=== PATIENT | male | born 1945 | race Caucasian/White ===

== ENCOUNTER → 2017-03-20 | Outpatient (CLI) | payer MEDICARE, OTHER ==
[~2017-03-20] MED LIST: ALLOPURINOL 10100 M3 PO; ALLOPURINOL 30300 M2 PO; ANUSOL1 EACH RC; AVELOX 400 MG400 M1 PO; AZITHROMYCIN 2250 MG PO; B-100 COMPLEX1 EAC1 PO; B-12250 MCG PO; BIOTIN-D1 GM PO; BIOTIN1 MG PO; BIOTIN2500 MCG PO; CAL-CITRATE PL1 EACH PO; CARVEDILOL25 MG PO; CEFDINIR300 MG PO; CIPROFLOXACIN500 M1 PO; CLEOCIN HCL150 MG PO; COZAAR 25MG TAB25 M1; COZAAR 50 MG TA50 M1 PO; Calcium PO; DIOVAN PO; DIOVAN320 MG PO; FLOMAX PO; GAVISCON500 MG PO; HI-CAL500 MG PO; IRON PO; IRON325 PO; K-DUR 20 MEQ T20 MEQ PO; LASIX 40 MG TAB40 M1; LASIX 40 MG TAB40 M2 PO; LEVAQUIN 750 M750 MG PO; LEVOFLOXACIN PG; LEVOTHROID100 MC1 PO; LORTAB 5 MG/5001 TA1 PO; LORTAB 7.5/5001 TA3; MOBIC15 MG; MULTIVITAMINS PO; NEPHROCAPS SOFT1 CAP PO; NEURONTIN 300300 M1 PO; NEXIUM40 MG PO; NORCO 5-325 TA1 EACH PO; OMEPRAZOLE 20 M20 M1 PO; OMEPRAZOLE40 MG PO; PERCOCET 5-3251 EACH PO; POTASSIUM CHLO20 ME1; PRAVACHOL20 MG PO; PROFERRIN12 MG PO; ROBAXIN 750 MG750 M1 PO; SELENIUM100 MCG PO; SYNTHROID100 MCG PO; SYNTHROID125 MCG PO; SYNTHROID175 MCG PO; SYNTHROID50 MCG PO; TAMSULOSIN HCL0.4 M1 PO; ULTRAM 50MG TAB50 MG PO; VITAMIN A25000 UNIT PO; VITAMIN B-1100 MG PO; VITAMIN D 5050000 I1 PO; VITAMIN E400 UNIT PO; VITCB500GO PO; ZINC CHELATE50 MG PO; ZOCOR 20 MG TAB20 M1 PO; Zinc PO; [UNRECOGNIZED DRUG - OTHER] PO; [UNRECOGNIZED DRUG - OTHER] PO; [UNRECOGNIZED DRUG - OTHER] PO; [UNRECOGNIZED DRUG - OTHER] PO; [UNRECOGNIZED DRUG - OTHER] PO
== END ==
LOC: M.RAD 14:10
DX: M17.0 Bilateral primary osteoarthritis of knee (principal)

== ENCOUNTER 2017-04-10 11:15 | Emergency (ER) | payer MEDICARE, OTHER ==
[~2017-04-10] VITALS: Ht 175.3 cm; Wt 106.6 kg
[~2017-04-10 11:15] MED LIST changes: -ROBAXIN 750 MG750 M1 PO
[2017-04-10] MEDS ORDERED: NORCO 5-325 TA1 EACH PO (12:19)
[2017-04-10] MEDS ORDERED: ROBAXIN 750 MG750 M1 PO (12:19)
[2017-04-10 12:48] VITALS: BP 136/76
== END 2017-04-10 12:49 | disposition home or self-care (01) ==
LOC: M.ERS 11:15
DX: S46.811A Strain of other muscles, fascia and tendons at shoulder and upper arm level, right arm, initial encounter (principal); I11.0 Hypertensive heart disease with heart failure; I50.9 Heart failure, unspecified; Z87.442 Personal history of urinary calculi; Z90.49 Acquired absence of other specified parts of digestive tract; Z87.891 Personal history of nicotine dependence; X50.0XXA Overexertion from strenuous movement or load, initial encounter; Y93.89 Activity, other specified; Y92.89 Other specified places as the place of occurrence of the external cause; Y99.8 Other external cause status

== ENCOUNTER → 2017-04-11 | Outpatient (CLI) | payer MEDICARE, OTHER ==
[~2017-04-11] MED LIST changes: +ROBAXIN 750 MG750 M1 PO
== END ==
LOC: M.RAD 10:01
DX: M51.34 Other intervertebral disc degeneration, thoracic region (principal); M25.511 Pain in right shoulder; M47.892 Other spondylosis, cervical region; I50.22 Chronic systolic (congestive) heart failure; I42.7 Cardiomyopathy due to drug and external agent; J18.9 Pneumonia, unspecified organism

== ENCOUNTER → 2017-05-11 | Outpatient (CLI) | payer MEDICARE, OTHER | LOC: M.RAD 11:43 | DX: M48.02 Spinal stenosis, cervical region (principal) ==

== ENCOUNTER → 2017-05-18 | Outpatient (CLI) | payer MEDICARE, OTHER | LOC: M.MRI 12:44 | DX: M47.892 Other spondylosis, cervical region (principal); M48.02 Spinal stenosis, cervical region ==

== ENCOUNTER → 2017-05-30 | Outpatient (CLI) | payer MEDICARE, OTHER ==
[~2017-05-30] MED LIST changes: +SYNTHROID100 MC1 PO; -SYNTHROID100 MCG PO
--- NOTE | 2017-06-14 08:18 | PAINCON ---
[address] [address] PAIN MANAGEMENT CONSULTATION Name: MARGY LIVE Room: [facility] Cordova#: [id number] Admission: 05/30/17 Attend Phys: Shay Vazquez MD Discharge: Date of : 45 Report #: [id number] THIS REPORT FOR: //name// CC: Panfilo Vazquez DATE OF SERVICE: 05/30/2017 CHIEF COMPLAINT: Left neck pain for about 2 months. HISTORY OF PRESENT ILLNESS: The patient is a 71-year-old gentleman who has been referred to the Pain Clinic for evaluation of shoulder and neck pain. In March 2017, he was moving several cinder blocks. After that activity, he noted some pain and discomfort in his neck and shoulder. He did take some [facility] tablets. He did not notice a significant improvement in his pain. He continues to have pain while he was moving his arm as well as in the area of soreness around his left neck. This discomfort was quite problematic at night. It made sleep more problematic. He has continued to have aching sensation and discomfort as a result of that. He has taken Robaxin and tried meloxicam. He noticed that while taking meloxicam, he noted some increased water retention. He has been using gabapentin, [facility], and methocarbamol. Overall, he feels his pain is maybe about 50% better, but still problematic and it is limiting his ability to turn his head, in particular it can be problematic while driving. He has tried heat with some benefit. ALLERGIES: MELOXICAM CAUSING WATER RETENTION. CURRENT MEDICATIONS: Allopurinol 100 mg tablets daily, Coreg 25 mg b.i.d., Lasix 40 mg daily, gabapentin 300 mg t.i.d., hydrocodone/acetaminophen 5/325 one to two tablets 6 hours p.r.n. pain, levothyroxine 50 mcg daily, Cozaar 100 mg daily, Robaxin 750 mg p.r.n. spasms, omeprazole 20 mg, potassium 20 mEq, and Pravachol 20 mg. PAST MEDICAL HISTORY: Hypertension, heart disease, gallbladder disease, hypothyroid, joint disease/arthritis, cancer x 3, congestive heart failure. PAST SURGICAL HISTORY: Back surgery x 2, spleen, Port-A-Cath, thyroid, cholecystectomy, 4 lithotripsies, splenectomy for cancer, kidney stents x 3, lithotripsy x 3, tumor of right upper chest, Hodgkin's lymphoma, removal of Port-A-Cath, duodenal switch, biliopancreatic diversion, IVC filter removed, rectal tumor, Hodgkin's/non-Hodgkin's lymphoma -- chemotherapy and radiation, and thoracentesis in 2014. SOCIAL HISTORY: He is retired. He occasionally drinks an alcoholic beverage. [place] [address] PAIN MANAGEMENT CONSULTATION Name: MARGY LIVE Room: [facility]#: [id number] Admission: 05/30/17 Attend Phys: Shay Vazquez MD Discharge: Date of : 45 Report #: [id number] REVIEW OF SYSTEMS QUESTIONNAIRE: Eye disease/injury, heart trouble, kidney stones. LABORATORY DATA: MRI of the cervical spine dated 05/18/2017 reveals: 1. C3-C4, there is minimal posterior disk bulge. There is mild effacement of the ventral thecal sac. There is no significant central spinal canal stenosis. There is mild right and at least moderate to severe left neural foraminal stenosis due to uncovertebral and facet arthrosis with severe left facet arthrosis. 2. C4-C5, there is a broad based posterior disk bulge with a superimposed central disk protrusion, which effaces and indents the ventral thecal sac. There is moderate thecal sac stenosis and narrowing of the thecal sac to 8 mm. There is moderate to severe/severe right and moderate to severe left neural foraminal stenosis due to uncovertebral and facet arthrosis. 3. C5-C6, there is a broad based posterior disk osteophyte complex, which indents the ventral thecal sac and cervical spinal cord. There is narrowing of the thecal sac to 8 mm consistent with at least moderate stenosis. There is moderate to severe/severe bilateral neural foraminal stenosis due to uncovertebral and facet arthrosis. 4. C6-C7, there is a broad based posterior disk bulge with suprapatellar shallow central disk protrusion, which markedly narrows the thecal sac to 6 mm consistent with severe thecal sac stenosis seen at axial T2 slice 10. There is moderate to severe bilateral neural foraminal stenosis due to uncovertebral and facet arthrosis. PAIN CLINIC ASSESSMENT: 1. Low back problems with osteoarthritis. 2. Height 5 feet 9 inches, weight 230 pounds, BMI is 34. 3. Vital signs: Blood pressure 130/75, heart rate 78, respiratory rate 16, room air O2 saturation is 98%, temperature 98.5. Pain intensity 2-3 depending on the activity.. 4. Fall risk: The patient has not fallen in the last 3 months. 5. Blood thinner: The patient is not on a blood thinner. 6. Hypertension: The patient is being treated for hypertension. 7. Opioids greater than 6 weeks. The patient is not on an opioid therapy greater than 6 weeks. 8. Risk assessment tool. 9. Functional assessment tool. 10. Recreational drug use: The patient denies use of recreational drugs. 11. Tobacco: The patient denies use of tobacco. 12. Alcoholic use: The patient drinks on occasion. PHYSICAL EXAMINATION: GENERAL: The patient is a well-developed male. He appears his stated age. He is alert and oriented x 3. Affect is appropriate. [place] [address] PAIN MANAGEMENT CONSULTATION Name: LIVE,MARGY BEARNON Room: [facility]#: [id number] Admission: 05/30/17 Attend Phys: Shay Vazquez MD Discharge: Date of : 45 Report #: [id number] HEENT: Normocephalic, atraumatic. Extraocular muscles intact. Sclerae icteric. Mucous membranes are moist. Hearing is within normal limits. NECK: Without adenopathy or JVD. HEART: Regular rate and rhythm. CHEST: Clear to auscultation without rhonchi or wheezing. ABDOMEN: Nontender. MUSCULOSKELETAL: Without significant scoliosis, kyphosis, or lordosis. Upper extremity muscle strength is judged to be 5/5 for the major muscle groups in the upper extremity without significant sensory changes. The patient has some pain and discomfort in the area of the left trapezius as well as the left levator scapular area. Some tenderness in the midline T1-C7 area. Lower extremity area is judged to be 5/5 for the major muscle groups in the lower extremity without neurologic changes. IMPRESSION: 1. Neck pain on the left side after lifting bricks about 2 months ago. 2. History of Hodgkin's lymphoma. 3. Back surgery x 2. 4. Hypertension. 5. Hypothyroidism. 6. History of congestive heart failure. 7. Rectal tumor/Hodgkin's/non-Hodgkin's lymphoma, status post chemotherapy and radiation. 8. History of thoracentesis in 2015. RECOMMENDATIONS: We discussed treatment options with the patient. He does have an area of discrete trigger point tenderness in the left neck and left shoulder. We will proceed with a trigger point injection to the affected areas. Risks and benefits of the trigger points were discussed. They could include infection, increased muscle soreness, no improvement in pain, possible pneumothorax. The patient elects to proceed. PROCEDURE NOTE: We discussed treatment options with the patient. Risks and benefits were discussed. The patient elects to proceed. The patient was taken to the procedure room. He was placed in the sitting position. His neck was sterilely cleansed with a chlorhexidine solution. The trapezius area was palpated. This reproduced a large component of his pain. A 25-gauge needle was then advanced into this area. Then, 5 mL of 0.5% bupivacaine with a total of 40 mg triamcinolone was injected into that area. The patient stated this was a trigger point. The second trigger point was noted in the left lateral neck area. Palpation in the area of the splenius capitis and levator scapulae was palpated. This reproduced a significant component of the patient's pain. A total of 5 mL of 0.5% bupivacaine was injected into this area. This reproduced his discomfort. A total of 5 mL with 40 mg triamcinolone was injected. The patient remained in the Pain Clinic for an appropriate amount [address] [address] PAIN MANAGEMENT CONSULTATION Name: MARGY LIVE [facility]#: [id number] Admission: 05/30/17 Attend Phys: Shay Vazquez MD Discharge: Date of : 45 Report #: [id number] of time. The Band-Aids were placed. There was no bleeding. He remained in the pain clinic area for an appropriate amount of time. He will follow up in the future as needed. Pain decreased to 1/10 at the time of discharge. We would like to thank you for letting us participate in his care. We hope he continues to improve. <ELECTRONICALLY SIGNED> By: Shay Vazquez MD 06/14/17 0818 [id number] [id number]. Miko Vazquez MD /[facility]
== END | disposition home or self-care (01) ==
LOC: M.PC 01:27
DX: M79.1 Myalgia (principal); M54.2 Cervicalgia; G89.29 Other chronic pain; I10 Essential (primary) hypertension; I50.9 Heart failure, unspecified; E03.9 Hypothyroidism, unspecified; M19.90 Unspecified osteoarthritis, unspecified site; Z98.890 Other specified postprocedural states; Z85.71 Personal history of Hodgkin lymphoma; Z90.49 Acquired absence of other specified parts of digestive tract; Z90.81 Acquired absence of spleen

== ENCOUNTER → 2018-01-02 | Outpatient (CLI) | payer MEDICARE, OTHER ==
[~2018-01-02] MED LIST changes: -SYNTHROID100 MC1 PO; +SYNTHROID100 MCG PO
--- NOTE | ~2018-01-02 | PAINCON ---
[facility] [address] [place] [address] PAIN MANAGEMENT CONSULTATION Name: CALOSMARGY MONTEZ Room: [facility] Cordova#: [id number] Admission: 01/02/18 Attend Phys: Shay Vazquez MD Discharge: Date of : 45 Report #: [id number] THIS REPORT FOR: //name// CC: Panfilo Vazquez DATE OF SERVICE: 01/02/2018 FOLLOWUP COMPLAINT: Trigger point injection was helpful for a long time and now it has returned. FOLLOWUP HISTORY: The patient is a 72-year-old gentleman, who has been followed in the pain clinic. He had pain and discomfort involving his left neck and right neck area. This was in 03/2017. He underwent a trigger point injection at that time. He noted significant improvement in his pain and level of comfort. He has noted over the last few weeks return of pain and discomfort involving his shoulder, left neck as well as the right neck. He continues to have some left hand discomfort. He notices some spasms at time. He had a pacemaker placed in 05/2017. He feels that the gabapentin is helpful. He feels that the [facility] can be helpful. He takes a very small amount of this. He usually fractures the pill and takes one half tablet, which would be about 2.5 mg and hydrocodone. He has noted some increased pain and discomfort while turning his head as well as lifting his head up and with driving. CURRENT MEDICATIONS: The patient is on allopurinol 100 mg daily, Coreg 25 mg b.i.d., Lasix 40 mg, gabapentin 300 mg t.i.d., hydrocodone/acetaminophen 5/325, one half tablet p.r.n., levothyroxine 50 mcg daily, Cozaar 100 mg daily, Robaxin 750 mg p.r.n. spasms; omeprazole 20 mg, potassium 20 mEq, and Pravachol 20 mg. ALLERGIES: MELOXICAM CAUSE WATER RETENTION. PAIN CLINIC ASSESSMENT AND PQRS: 1. Low back pain with osteoarthritis. The patient is not being treated for rheumatoid arthritis. 2. Pain score is 6/10. 3. Fall history: The patient has not fallen in the last 3 months. 4. Blood thinner. The patient is not on a blood thinning medication. 5. Hypertension. The patient is being treated for hypertension. 6. Opioids greater than 6 weeks. The patient uses sparingly hydrocodone. 7. Risk assessment tool, low for opioid use. 8. Functional assessment tool. 9. Recreational drug use. The patient denies use of recreational drugs. 10. Tobacco: The patient denies use of tobacco. 11. Alcohol. The patient drinks alcoholic beverages on rare occasion. PHYSICAL EXAMINATION: [place] [address] PAIN MANAGEMENT CONSULTATION Name: CALOSMARGY BEARNON Room: [facility]#: [id number] Admission: 01/02/18 Attend Phys: Shay Vazquez MD Discharge: Date of : 45 Report #: [id number] GENERAL: The patient is a well-developed, well-nourished white male. He appears his stated age. He is alert and oriented x 3. His speech is fluent. Height is 5 feet 9 inches, weight is 247 pounds, and BMI is 36.6. VITAL SIGNS: Blood pressure is 141/84, heart rate is 78, respiratory rate is 16, room air saturation is 94%, and temperature is 98.0. HEENT: Normocephalic, atraumatic. Extraocular eye muscles intact. Sclerae nonicteric. Mucous membranes are moist. Hearing is within normal limits. NECK: Without adenopathy or JVD. The patient has a tattoo in this area from his radiation treatments in the past. HEART: Regular rate and rhythm. CHEST: Clear to auscultation without rhonchi or wheezes. EXTREMITIES: Upper extremity. The patient has pain and discomfort in the trigger point in the left trapezius. Also, has a trigger point in the rhomboid area on the left. He has a trigger point in the right trapezius as well as a trigger point in the right rhomboid area. MUSCULOSKELETAL: Without significant scoliosis, kyphosis, or lordosis. Upper extremity muscle strength is judged to be 5/5 for the major muscle groups. There was no sensory change. The patient has some discomfort in the neck, left side more problematic than the right. IMPRESSION: 1. Neck pain on the left side as well as the right side. 2. History of Hodgkin's lymphoma. 3. Back surgery x 2. 4. Hypertension. 5. Hypothyroidism. 6. History of congestive heart failure. 7. Rectal tumor/Hodgkin's disease/non-Hodgkin's lymphoma, status post chemotherapy and radiation. 8. History of prostate cancer, status post treatment. 9. History of thoracentesis in 2015. RECOMMENDATIONS: We have discussed treatment options with the patient. It appears that he continues to have a recurrence of trigger points in his neck. Risks and benefits of a trigger point injection were discussed. They include infection, worsening of pain, no improvement in pain, and pneumothorax were discussed. The patient elects to proceed with the procedure. The patient was taken to the procedure area. He was assisted in getting on the examination table. The patient sat up on the table in a perpendicular fashion. A chair was placed under his feet for stability. The patient leaned forward and his back was sterilely prepped with a chlorhexidine solution. Four trigger points were noted. Trigger point in the left trapezius area, which was injected with a total of 20 mg of Depo-Medrol. A 25-gauge needle was advanced into this area. The patient states that this did reproduce his discomfort. At this number one trigger point, a total of 5 mL of 0.5% bupivacaine and 20 mg of Depo-Medrol was placed. Trigger point #2 in the left rhomboid area was noted. [place] 25[place] [address] PAIN MANAGEMENT CONSULTATION Name: MARGY LIVE Room: [facility]#: [id number] Admission: 01/02/18 Attend Phys: Shay Vazquez MD Discharge: Date of : 45 Report #: [id number] needle was advanced to this area. The patient states that this did reproduce his discomfort as well. Aspiration was negative. A total of 5 mL of 0.5% bupivacaine and 20 mg of Depo-Medrol was injected into this area. The contralateral right side had noted of the third trigger point, which was in his rhomboid area. A 25-gauge needle was advanced to the area of discomfort. Aspiration was negative. A total of 5 mL of 0.5% bupivacaine and 20 mg of Depo-Medrol was injected. The 4th trigger point was noted in the rhomboid area. A 25-gauge needle was then advanced to the area. The patient states this reproduced his discomfort. Aspiration was negative. A total of 5 mL of 0.5% bupivacaine with 20 mg of Depo-Medrol was injected. The patient tolerated the procedure well. There were no complications. He remained in the pain clinic for an appropriate amount of time. He will follow up in the future as needed. We would like to thank you for letting us to participate in his care. We hope he continues to improve. By: [id number]. Miko Vazquez MD /[facility]
== END | disposition home or self-care (01) ==
LOC: M.PC 04:54
DX: M79.18 Myalgia, other site (principal); M54.2 Cervicalgia; I10 Essential (primary) hypertension; I42.9 Cardiomyopathy, unspecified; G47.33 Obstructive sleep apnea (adult) (pediatric); E03.9 Hypothyroidism, unspecified; Z98.890 Other specified postprocedural states; Z85.46 Personal history of malignant neoplasm of prostate; Z85.71 Personal history of Hodgkin lymphoma; Z87.09 Personal history of other diseases of the respiratory system; Z88.8 Allergy status to other drugs, medicaments and biological substances; Z79.899 Other long term (current) drug therapy; Z79.891 Long term (current) use of opiate analgesic; Z87.442 Personal history of urinary calculi; Z86.79 Personal history of other diseases of the circulatory system

== ENCOUNTER → 2018-05-07 | Outpatient (CLI) | payer MEDICARE, OTHER ==
[~2018-05-07] MED LIST changes: +SYNTHROID100 MC1 PO; -SYNTHROID100 MCG PO
[2018-05-07 10:53] LABS: ABSOLUTE BASOPHILS 0.1 thou/uL (0.0-0.2); ABSOLUTE EOSINOPHILS 0.4 thou/uL (0.0-0.7); ABSOLUTE LYMPHOCYTES 2.2 thou/uL (0.8-5.3); ABSOLUTE MONOCYTES 0.9 thou/uL (0.0-1.2); ABSOLUTE NEUTROPHILS 4.4 thou/uL (1.6-8.1); BASOPHILS 0.7 %; EOSINOPHILS 4.8 %; HEMATOCRIT 42.5 % (42.0-52.0); HEMOGLOBIN 14.2 gm/dL (14.0-18.0); LYMPHOCYTES 27.9 %; MCH 31.3 pg (26.0-34.0); MCHC 33.4 g/dL (28.0-37.0); MCV 93.5 fL (80.0-100.0); MONOCYTES 11.3 %; MPV 8.5 fl. (7.2-11.1); NUCLEATED RBCS 0 /100WBC; PLATELET COUNT* 259 thou/uL (150-400); POLYS 55.3 %; RBC 4.54 mil/uL (4.50-6.00); RDW-CV 14.2 % (10.5-14.5); WBC 7.9 thou/uL (4.0-11.0)
[2018-05-07 11:15] LABS: ALBUMIN 2.6 g/dL (3.4-5.0); CALCIUM 9.1 mg/dL (8.5-10.1); CREATININE 1.3 mg/dL (0.6-1.3); POTASSIUM 4.5 mmol/L (3.5-5.1); TOTAL BILIRUBIN 0.8 mg/dL (<0.1-1.0); TOTAL PROTEIN 6.9 g/dL (6.4-8.2)
== END ==
LOC: M.RAD 10:32
PROVIDERS: Internal Medicine
DX: I11.0 Hypertensive heart disease with heart failure (principal); I50.32 Chronic diastolic (congestive) heart failure; R06.02 Shortness of breath; I42.7 Cardiomyopathy due to drug and external agent; Z88.8 Allergy status to other drugs, medicaments and biological substances; Z88.2 Allergy status to sulfonamides; Z95.0 Presence of cardiac pacemaker

== ENCOUNTER → 2018-09-06 | Outpatient (CLI) | payer MEDICARE, OTHER ==
--- NOTE | 2018-09-19 16:33 | PAINCON ---
[address] [address] PAIN MANAGEMENT CONSULTATION Name: MARGY LIVE Room: [facility] Cordova#: [id number] Admission: 09/06/18 Attend Phys: Shay Vazquez MD Discharge: Date of : 45 Report #: [id number] THIS REPORT FOR: //name// CC: Panfilo Vazquez DATE OF SERVICE: 09/06/2018 CHIEF COMPLAINT: "I was lifting an umbrella and strain my neck. The pain has been bad. I have not slept for two nights." HISTORY: The patient is a 72-year-old gentleman who has been seen in the Pain Clinic in the past because of myofascial pain. In the past, he underwent an injection in the right shoulder area. He gleaned significant improvement from that injection. Recently, he was working with a giant umbrella. He was trying to raise it. In the process of lifting that he feels like he strained his right shoulder. He has had intense pain. He has sought treatment. He was considering going to the Emergency Room. He called the Pain Clinic and we were able to see him today. He would like to undergo trigger point injection in the similar area that he had in the past. This provided him with significant amount of improvement. He has been miserable because of the pain. ALLERGIES: MELOXICAM CAUSE WATER RETENTION. CURRENT MEDICATIONS: Allopurinol 100 mg, Coreg 2.25 mg, Lasix 40 mg, gabapentin 300 mg t.i.d., hydrochlorothiazide/acetaminophen 5/325, one-half tablet p.r.n., levothyroxine 50 mcg daily, Cozaar 100 mg daily, Robaxin 750 mg p.r.n., spasms, omeprazole 20 mg, potassium 20 mEq, Pravachol 20 mg. PAIN CLINIC ASSESSMENT/PQRS: 1. The patient is not being treated for rheumatoid arthritis. Does have some osteoarthritic changes in his low back. 2. Height 5 feet 9 inches, 247 pounds, BMI is 36.0 3. Vital Signs: Blood pressure 176/104, heart rate 86, respiratory rate 16, room air saturation 93%, temperature 98.0. 4. Pain intensity, 10/23. 5. Fall history: The patient has not fallen in the last 3 months. 6. Blood thinner. The patient is not on a blood thinning medication. 7. Hypertension. The patient is being treated for hypertension. 8. Opioids greater than 6 weeks. The patient sparingly uses oxycodone. 9. Risk assessment tool, low for opioid use. 10. Functional assessment tool. 11. Recreational drug use. The patient denies use of recreational drugs. 12. Tobacco: The patient denies use of tobacco. 13. Alcohol: The patient [place] [address] PAIN MANAGEMENT CONSULTATION Name: MARGY LIVE [id number] Admission: 09/06/18 Attend Phys: Shay Vazquez MD Discharge: Date of : 45 Report #: [id number] PHYSICAL EXAMINATION: GENERAL: The patient is a well-developed, well-nourished white male. Appears his stated age. He is alert and oriented x 3. His affect is appropriate. Speech is fluent. HEENT: Normocephalic, atraumatic. Extraocular eye muscles intact. Sclerae nonicteric. Mucous membranes are moist. The patient's is present. Has pain and discomfort and is sitting with his neck leaning to the right side with an ice pack on it. He appears very uncomfortable. He complains of pain in his neck and upper back and shoulder area. Rates it as 9/10. NECK: Has some decreased range of motion with him carrying his neck in a right lateral bending with an ice pack on it. CHEST: Clear to auscultation without rhonchi or rales. EXTREMITIES: Upper extremity, the patient has pain and discomfort in the area of the trapezius, has pain and discomfort in the rhomboid area. IMPRESSION: 1. Right-sided neck pain after lifting a large umbrella. 2. Hodgkin's lymphoma. 3. History of back surgery x 2. 4. Hypertension. 5. Hypothyroidism. 6. History of congestive heart failure. 7. Rectal tumor/Hodgkin's disease/non-Hodgkin's lymphoma, status post chemotherapy and radiation. 8. History of prostate cancer, status post treatment. 9. History of thoracentesis in 2015. 10. History of cardiac pacemaker. RECOMMENDATIONS: We discussed treatment options with the patient. He is having a tremendous amount of pain and discomfort. It involves his right side. Treatment of the right side with trigger point injections in the past provided him a number of months of pain relief. He was doing well until he was lifting a "heavy out door umbrella." Since that time, he has had pain, which is quite severe. He has been unable to rest at night. For the last two nights, he has been experiencing pain, which has kept him awake. We discussed the treatment options with the patient and his . The treatment includes trigger point injections. We explained the possibility of pneumothorax, infection, nerve damage, no improvement in pain and the patient elects to proceed. PROCEDURE NOTE: The patient was taken to the procedure area. He was then assisted in getting on an examination table. He sat perpendicular to the table. A chair was placed under his feet for balance. His back was sterilely prepped on the right side with a chlorhexidine solution. Three trigger points have been identified. These were sterilely prepped [place] [address] PAIN MANAGEMENT CONSULTATION Name: LIVEMARGY MONTEZ Room: [facility]#: [id number] Admission: 09/06/18 Attend Phys: Shay Vazquez MD Discharge: Date of : 45 Report #: [id number] first trigger point was in the right trapezius area. Aspiration was negative. Total of 9 mL of 0.5% bupivacaine and 40 mg Depo-Medrol was injected. The second trigger point was identified in the rhomboid area. After this was identified, a total of 10 mL of 0.5% bupivacaine and 40 mg Depo-Medrol was injected into this area. We then waited for about 5 minutes. The patient still had another trigger point in the right trapezius near the deltoid. This was palpated, identified and a 25-gauge needle was used to identify the trigger point. The patient states this did reproduce the discomfort. Aspiration was negative. A total of 6 mL of 0.5% bupivacaine and 40 mg triamcinolone was injected. The patient tolerated the procedure well. He remained in the Pain Clinic for an appropriate amount of time. He did note that his pain did decrease afterwards from 9 to 4. Overall, he feels that things are better and would like to follow up as needed. We would like to thank you for letting us participate in his care. We hope he continues to improve. <ELECTRONICALLY SIGNED> By: Shay Vazquez MD 09/19/18 1633 [id number] 2118N. Miko Vazquez MD /nt
== END | disposition home or self-care (01) ==
LOC: M.PC 09:15
DX: M79.18 Myalgia, other site (principal); M54.2 Cervicalgia; I11.0 Hypertensive heart disease with heart failure; I50.9 Heart failure, unspecified; I42.9 Cardiomyopathy, unspecified; G47.33 Obstructive sleep apnea (adult) (pediatric); E03.9 Hypothyroidism, unspecified; Z85.46 Personal history of malignant neoplasm of prostate; Z95.0 Presence of cardiac pacemaker; Z98.890 Other specified postprocedural states; Z79.899 Other long term (current) drug therapy; Z85.71 Personal history of Hodgkin lymphoma; Z88.8 Allergy status to other drugs, medicaments and biological substances; Z87.442 Personal history of urinary calculi

== ENCOUNTER → 2019-01-15 | Outpatient (CLI) | payer MEDICARE, OTHER ==
[~2019-01-15] MED LIST changes: +HYDROCODON-ACE1 EAC7 PO
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
== END | disposition home or self-care (01) ==
LOC: M.PC 04:29
DX: M79.18 Myalgia, other site (principal); M54.2 Cervicalgia; I10 Essential (primary) hypertension; E03.9 Hypothyroidism, unspecified; Z95.0 Presence of cardiac pacemaker; Z85.71 Personal history of Hodgkin lymphoma; Z85.46 Personal history of malignant neoplasm of prostate; Z98.890 Other specified postprocedural states; Z79.899 Other long term (current) drug therapy; Z88.8 Allergy status to other drugs, medicaments and biological substances; Z79.891 Long term (current) use of opiate analgesic

== ENCOUNTER → 2019-01-28 | Outpatient (CLI) | payer MEDICARE, OTHER | LOC: M.CT 10:20 | DX: N20.0 Calculus of kidney (principal); K40.90 Unilateral inguinal hernia, without obstruction or gangrene, not specified as recurrent; E78.00 Pure hypercholesterolemia, unspecified; I10 Essential (primary) hypertension; E03.9 Hypothyroidism, unspecified; Z90.49 Acquired absence of other specified parts of digestive tract ==

== ENCOUNTER → 2019-06-26 | Outpatient (CLI) | payer MEDICARE, OTHER ==
[~2019-06-26] MED LIST changes: +FLOMAX0.4 MG PO; +LEVOXYL175 MCG PO; +LEVOXYL200 MCG PO; +NORCO 5-325 TA1 EAC1 PO; +PRAVASTATIN SOD10 MG PO
== END ==
LOC: M.RAD 10:36
DX: M19.011 Primary osteoarthritis, right shoulder (principal); M19.012 Primary osteoarthritis, left shoulder; M25.511 Pain in right shoulder; M25.512 Pain in left shoulder; M54.2 Cervicalgia; M48.02 Spinal stenosis, cervical region; R29.890 Loss of height; M25.78 Osteophyte, vertebrae; M85.88 Other specified disorders of bone density and structure, other site

== ENCOUNTER → 2019-07-02 | Outpatient (CLI) | payer MEDICARE, OTHER ==
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
== END | disposition home or self-care (01) ==
LOC: M.PC 05:02
DX: M79.18 Myalgia, other site (principal); M54.2 Cervicalgia; I10 Essential (primary) hypertension; E03.9 Hypothyroidism, unspecified; I42.9 Cardiomyopathy, unspecified; G47.33 Obstructive sleep apnea (adult) (pediatric); Z95.0 Presence of cardiac pacemaker; Z85.46 Personal history of malignant neoplasm of prostate; Z98.890 Other specified postprocedural states; Z79.899 Other long term (current) drug therapy; Z85.71 Personal history of Hodgkin lymphoma; Z88.8 Allergy status to other drugs, medicaments and biological substances

== ENCOUNTER → 2019-10-17 | Outpatient (CLI) | payer MEDICARE, OTHER ==
[~2019-10-17] MED LIST changes: +PERCOCET 10-321 EAC1 PO
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
== END | disposition home or self-care (01) ==
LOC: M.PC 12:41
PROVIDERS: ATTEND Anesthesiology Pain Medicine
DX: M54.2 Cervicalgia (principal); G57.00 Lesion of sciatic nerve, unspecified lower limb; G89.4 Chronic pain syndrome; I11.0 Hypertensive heart disease with heart failure; I50.9 Heart failure, unspecified; E03.9 Hypothyroidism, unspecified; Z98.890 Other specified postprocedural states; Z79.899 Other long term (current) drug therapy; Z91.81 History of falling; Z85.71 Personal history of Hodgkin lymphoma; Z85.46 Personal history of malignant neoplasm of prostate; Z95.0 Presence of cardiac pacemaker

== ENCOUNTER → 2020-02-11 | Outpatient (CLI) | payer MEDICARE, OTHER | LOC: M.RAD 10:54 | PROVIDERS: ATTEND Registered Nurse Diabetes Educator | DX: J84.9 Interstitial pulmonary disease, unspecified (principal); R05 Cough ==